=== PATIENT | male | born 1945 | race Caucasian/White ===

== ENCOUNTER → 2017-07-22 | Outpatient (CLI) | payer OTHER ==
[~2017-07-22] MED LIST: ATOR40TA PO; CHOL200024 PO; GLIM2TAB2 PO; LEVE10007 PO; LEVO50TA5 PO; OMEP-110 PO; POTA2TAB8 PO; SAXA1TBM2 PO; VITA1TAB3 PO
[2017-07-22 12:25] LABS: ASPARTATE AMINO TRANSFERASE 20 U/L (15-37); BLOOD UREA NITROGEN 14 mg/dL (7-18)
== END | disposition home or self-care (01) ==
LOC: STAR 10:56
PROVIDERS: ATTEND Podiatrist Foot & Ankle Surgery
DX: Z01.818 Encounter for other preprocedural examination (principal); G58.8 Other specified mononeuropathies
CPT/HCPCS: 36415; 80053; 93005

== ENCOUNTER 2017-07-30 11:35 | Day surgery (SDC) | payer OTHER ==
[~2017-07-30] VITALS: Ht 182.9 cm; Wt 73.0 kg
[2017-07-30] MEDS ORDERED: LACTATED RINGERS 1,000 ML IV SCH (11:46)
[2017-07-30 11:58] VITALS: BP 116/72
[2017-07-30] MEDS ORDERED: FENTANYL PF 100 MCG/2ML ONE (12:39)
[2017-07-30] MEDS ORDERED: MIDAZOLAM 1 MG/ML, 2ML ONE (12:39)
[2017-07-30] MEDS ORDERED: LIDOCAINE/PF 1%, 30ML ONE (12:45)
[2017-07-30] MEDS ORDERED: BUPIVACAINE/PF 0.5% ONE (12:45)
[2017-07-30] MEDS ORDERED: EPINEPHRINE 1 MG/ML, 1ML ONE (12:45)
[2017-07-30] MEDS ORDERED: CEFAZOLIN 1,000 MG ONE (13:10)
[2017-07-30] MEDS ORDERED: ONDANSETRON 2MG/ML, 2ML ONE (13:10)
[2017-07-30] MEDS ORDERED: PROPOFOL 10 MG/ML, 20ML ONE (13:46)
[2017-07-30] MEDS ORDERED: ACETAMINOPHEN 325 MG TABLET PO PRN (14:00)
[2017-07-30] MEDS ORDERED: hydrALAzine 20 MG/ML, 1ML IV PRN (14:00)
[2017-07-30] MEDS ORDERED: DIAZEPAM 5 MG/ML, 2ML IVPush PRN (14:00)
[2017-07-30] MEDS ORDERED: EPHEDRINE 50 MG/ML, 1ML IVPush PRN (14:00)
[2017-07-30] MEDS ORDERED: MEPERIDINE/PF 25MG/0.5ML IVPush PRN (14:00)
[2017-07-30] MEDS ORDERED: HYDROmorphone 1 MG/ML, 1ML IV PRN (14:00)
[2017-07-30] MEDS ORDERED: HYDROcodone/APAP 7.5-325MG/15ML UDC PO PRN (14:00)
[2017-07-30] MEDS ORDERED: ONDANSETRON 2MG/ML, 2ML IVPush PRN (14:00)
[2017-07-30] MEDS ORDERED: OXYcodone 5 MG/5 ML ORAL.SOL UDC PO PRN (14:00)
[2017-07-30] MEDS ORDERED: MIDAZOLAM 1 MG/ML, 2ML IV PRN (14:00)
[2017-07-30] MEDS ORDERED: FENTANYL PF 100 MCG/2ML IV PRN (14:00)
[2017-07-30] MEDS ORDERED: ALBUTEROL SULFATE 2.5 MG/3 ML NPPB PRN (14:00)
[2017-07-30] MEDS ORDERED: LABETALOL 5MG/ML, 20ML IV PRN (14:00)
[2017-07-30] MEDS ORDERED: PROMETHAZINE 25 MG/ML, 1ML IV PRN (14:00)
[2017-07-30] MEDS ORDERED: METOPROLOL 1 MG/ML, 5ML IV PRN (14:00)
[2017-07-30] MEDS ORDERED: OXYcodone 5 MG/5 ML ORAL.SOL UDC ONE (14:07)
[2017-07-30] MEDS ORDERED: ACETAMINOPHEN 650 MG/20.3 ML UDC ONE (14:07)
== END 2017-07-30 16:10 ==
LOC: OUT 11:35
PROVIDERS: ATTEND Podiatrist Foot & Ankle Surgery
DX: G57.82 Other specified mononeuropathies of left lower limb (principal); M79.2 Neuralgia and neuritis, unspecified; E11.9 Type 2 diabetes mellitus without complications; Z86.718 Personal history of other venous thrombosis and embolism
CPT/HCPCS: 28080; 82962; 88304; J0171; J0690; J2250; J2405; J2704; J3010; J3490